=== PATIENT | female | born 1950 | race Caucasian/White ===

== ENCOUNTER 2017-04-20 08:57 | Day surgery (SDC) | payer OTHER ==
[2017-04-20] MEDS ORDERED: LIDOCAINE 1% 2 ML INJ ONE (09:36)
[2017-04-20] MEDS ORDERED: PROPOFOL 200 MG/20 ML VIAL ONE (10:37)
[2017-04-20] MEDS ORDERED: MIDAZOLAM 2 MG/2 ML VIAL ONE (10:42)
--- NOTE | 2017-04-20 11:49 | GPN ---
[f rep st] PROCEDURE NOTE PREPROCEDURE DIAGNOSES: 1. Diarrhea. 2. Abdominal pain. 3. Belching. POSTPROCEDURE DIAGNOSES: 1. Diarrhea. 2. Abdominal pain. 3. Belching. 4. Normal colonoscopy. PROCEDURE: Colonoscopy with biopsies. MEDICATIONS: Monitored anesthesia care. INDICATIONS: The patient is a 66-year-old female, who was seen in our clinic by Dr. Johansen for diarr hea, as well as bloating and belching. She is here today for colonoscopy for further evaluation. T he risks and benefits of the procedure were discussed with the patient and consent obtained. Risks include, but not limited to, bleeding, perforation, and risks related to sedation. The patient is A SA class 3. DESCRIPTION OF PROCEDURE: The adult colonoscope was advanced into the terminal ileum, which appeare d normal. Biopsies were taken using cold biopsy forceps to evaluate for etiology of diarrhea. The remaining colon appeared normal, including the appendiceal orifice, cecum, IC valve, ascending colon , hepatic flexure, transverse colon, splenic flexure, descending colon, and sigmoid colon. Biopsies were taken throughout the colon to evaluate for microscopic colitis. Retroflexed views in the rect um were normal. IMPRESSION: Normal colonoscopy, including the terminal ileum. Random biopsies taken throughout the colon and from the terminal ilium. RECOMMENDATIONS: 1. Discharge to home with escort. 2. Advance diet as tolerated. 3. Follow up with the final pathology results. 4. Repeat colonoscopy in 10 years for screening purposes. 5. Follow up in the clinic with Dr. Johansen as previously scheduled. Thank you for allowing me to participate in the care of your patient. Please do not hesitate to marcela amalia with questions. /[id number]/MODL
== END 2017-04-20 12:35 | disposition home or self-care (01) ==
LOC: FSGY 08:57
PROVIDERS: ATTEND Internal Medicine Gastroenterology
PROC: 0DBB8ZX Excision of Ileum, Via Natural or Artificial Opening Endoscopic, Diagnostic (ICD-10-PCS; principal; 2017-04-20 10:15)
PROC: 0DBE8ZX Excision of Large Intestine, Via Natural or Artificial Opening Endoscopic, Diagnostic (ICD-10-PCS; principal; 2017-04-20 10:15)
DX: R19.7 Diarrhea, unspecified (principal); R10.9 Unspecified abdominal pain; R14.0 Abdominal distension (gaseous); E11.9 Type 2 diabetes mellitus without complications; I10 Essential (primary) hypertension; I73.9 Peripheral vascular disease, unspecified; Z89.512 Acquired absence of left leg below knee; Z89.611 Acquired absence of right leg above knee
CPT/HCPCS: J2250; J2704

== ENCOUNTER → 2017-05-09 | Outpatient (CLI) | payer OTHER | LOC: FIMAGING 14:39 | PROVIDERS: ATTEND Nurse Practitioner Family | DX: Z12.31 Encounter for screening mammogram for malignant neoplasm of breast (principal) | CPT/HCPCS: G0202 ==

== ENCOUNTER → 2018-05-16 | Outpatient (CLI) | payer OTHER | LOC: FIMAGING 12:13 | PROVIDERS: ATTEND Nurse Practitioner Family | DX: Z12.31 Encounter for screening mammogram for malignant neoplasm of breast (principal) ==

== ENCOUNTER → 2019-05-07 | Outpatient (CLI) | payer OTHER | LOC: FIMAGING 14:45 ==